=== PATIENT | male | born 1970 | race Caucasian/White ===

== ENCOUNTER 2018-12-12 21:57 | Emergency (ER) | payer SELFPAY ==
[2018-12-12] MEDS ORDERED: HYDROCODONE/APAP 10/325 TAB ONE (22:56)
--- NOTE | 2018-12-13 00:13 | ER ---
Nurse's Notes [facility] Name: Bakari Cason Jr Age: 48 yrs Sex: Male : 1970 Arrival Date: 12/12/2018 Time: 22:04 Bed 4 Private MD: Diagnosis: Low back pain;Pain in left lower leg Presentation: 12/12 22:08 Presenting complaint: EMS states: Patient was in shower when shower chair collapsed lp1 from underneath him, hitting lower back on shower chair and hitting end of L BKA on wall of tub; Complaint of pain to R lower back. Transition of care: patient was not received from another setting of care. Onset of symptoms was December 12, 2018 at 21:00. Risk Assessment: Do you want to hurt yourself or someone else? Patient reports no desire to harm self or others. Initial Sepsis Screen: Does the patient meet any 2 criteria? No. Patient's initial sepsis screen is negative. Does the patient have a suspected source of infection? No. Patient's initial sepsis screen is negative. Care prior to arrival: None. 22:08 Method Of Arrival: EMS: [facility] lp1 22:08 Acuity: THEO 3 lp1 Historical: - Allergies: 22:17 Keflex; lp1 22:17 Clindamycin; lp1 - Home Meds: 22:17 pravastatin oral oral [Active]; Trazodone Oral [Active]; lp1 - PMHx: 22:17 Hyperlipidemia; lp1 - PSHx: 22:17 L BKA; R hip surgery; R arm surgery; Appendectomy; Cholecystectomy; ear surgery; lp1 - Immunization history:: Adult Immunizations up to date. - Social history:: Smoking status: Patient/guardian denies using tobacco. - Ebola Screening: : No symptoms or risks identified at this time. Screenin:18 Abuse screen: Denies threats or abuse. Denies injuries from another. Nutritional lp1 screening: No deficits noted. Tuberculosis screening: No symptoms or risk factors identified. Fall Risk Total Kramer Fall Scale indicates High Risk Score (45 or more points). Fall prevention measures have been instituted. Side Rails Up X 2 As available patient and family educated on Fall Prevention Program and Strategies. Assessment: 22:18 General: Appears in no apparent distress. Behavior is appropriate for age. Pain: lp1 Complains of pain in right low back Pain currently is 9 out of 10 on a pain scale. Quality of pain is described as sharp. Neuro: Level of Consciousness is awake, alert, obeys commands, Oriented to person, place, time, situation. Cardiovascular: Patient's skin is warm and dry. Respiratory: Respiratory effort is even, unlabored, Respiratory pattern is regular, Breath sounds are clear bilaterally. GI: No signs and/or symptoms were reported involving the gastrointestinal system. : No signs and/or symptoms were reported regarding the genitourinary system. EENT: No signs and/or symptoms were reported regarding the EENT system. Derm: Skin is pink, warm \\T\\ dry. Musculoskeletal: Amputation of Other: L BKA; Bruising noted to end of amputation from fall. 12/13 00:24 Reassessment: Patient appears in no apparent distress at this time. Patient is alert, lp1 oriented x 3, equal unlabored respirations, skin warm/dry/pink. Patient states feeling better. Vital Signs: 12/12 22:12 BP 156 / 90; Pulse 55; Resp 18; Temp 97.8(O); Pulse Ox 97% on R/A; Weight 108.86 kg; lp1 Height 6 ft. 1 in. (185.42 cm); Pain 9/10; 23:00 BP 129 / 82; Pulse 58; Resp 18; Pulse Ox 97% on R/A; lp1 12/13 00:00 BP 108 / 58; Pulse 59; Pulse Ox 97% on R/A; lp1 12/12 22:12 Body Mass Index 31.66 (108.86 kg, 185.42 cm) lp1 ED Course: 12/12 22:04 Patient arrived in ED. am2 22:07 Sudha Cintron, RN is Primary Nurse. lp1 22:11 Triage completed. lp1 22:12 Arm band placed on right wrist. lp1 22:18 Patient has correct armband on for positive identification. Pulse ox on. NIBP on. lp1 22:19 No provider procedures requiring assistance completed. lp1 22:28 Noelle Med[facility] FNP-C [facility]. kb 22:28 Mark Collado MD is Attending Physician. kb 22:52 Tib Fib Left XRAY In Process Unspecified. EDMS 23:[address] via stretcher. nj 23:15 CT completed. Patient tolerated procedure well. Patient moved back from CT. 23:22 CT Lumbar Spine Wo Con In Process Unspecified. EDAZ 12/13 00:13 Patient did not have IV access during this emergency room visit. lp1 Administered Medications: 12/12 22:49 Drug: Constable 10 mg-325 mg 1 tabs Route: PO; lp1 12/13 00:00 Follow up: Response: Pain is decreased lp1 Outcome: 00:12 Discharge ordered by MD. kb 00:24 Discharged to home via wheelchair, with family. lp1 00:24 Condition: good 00:24 Discharge instructions given to patient, Instructed on discharge instructions, follow up and referral plans. medication usage, Demonstrated understanding of instructions, follow-up care, medications, Prescriptions given X 2. 00:25 Patient left the ED. lp1 Addendum: 12/14/2018 10:47 Addendum: Radiology Result: Per Noelle Medley NP contacted pt to follow-up with a a5 orthopedic doctor for positive old fx on x-ray. Pt states "I will definitely follow-up thanks". Signatures: Dispatcher [employer] EDAZ Noelle Medley, PUBLIC ADDRESS SYSTEMS MECHANIC-C PUBLIC ADDRESS SYSTEMS MECHANIC-Matteob Bry Ocasio Audri, RN RN aa5 Sudha Cintron RN RN lp1 Vladislav Alonzo Amanda am2
--- NOTE | 2018-12-13 00:13 | EDPHYS ---
Physician Documentation [facility] Name: Bakari Cason Jr Age: 48 yrs Sex: Male : 1970 Arrival Date: 12/12/2018 Time: 22:04 Bed 4 Private MD: ED Physician Mark Collado HPI: 12/13 00:11 This 48 yrs old Male presents to ER via EMS with complaints of Fall Injury. kb 00:11 Details of fall: The patient fell from seated position, in the shower. Onset: The kb symptoms/episode began/occurred just prior to arrival. Associated injuries: The patient sustained left pereira and lumbar area and right low back, painful injury. Severity of symptoms: At their worst the symptoms were moderate, in the emergency department the symptoms are unchanged. The patient has not experienced similar symptoms in the past. The patient has not recently seen a physician. 00:11 Pt reports he sat on shower chair and it collapsed. Pain to low back, right flank and kb left bka stump. Historical: - Allergies: 12/12 22:17 Keflex; lp1 22:17 Clindamycin; lp1 - Home Meds: 22:17 pravastatin oral oral [Active]; Trazodone Oral [Active]; lp1 - PMHx: 22:17 Hyperlipidemia; lp1 - PSHx: 22:17 L BKA; R hip surgery; R arm surgery; Appendectomy; Cholecystectomy; ear surgery; lp1 - Immunization history:: Adult Immunizations up to date. - Social history:: Smoking status: Patient/guardian denies using tobacco. - Ebola Screening: : No symptoms or risks identified at this time. ROS: 12/13 00:09 Constitutional: Negative for fever, chills, and weight loss, ENT: Negative for injury, kb pain, and discharge, Neck: Negative for injury, pain, and swelling, Cardiovascular: Negative for chest pain, palpitations, and edema, Respiratory: Negative for shortness of breath, cough, wheezing, and pleuritic chest pain, Abdomen/GI: Negative for abdominal pain, nausea, vomiting, diarrhea, and constipation, : Negative for injury, bleeding, discharge, and swelling, Skin: Negative for injury, rash, and discoloration, Neuro: Negative for headache, weakness, numbness, tingling, and seizure. Back: Positive for pain at rest, pain with movement, of the lumbar area and right low back. MS/extremity: Positive for pain, of the left pereira. Exam: 00:10 Constitutional: This is a well developed, well nourished patient who is awake, alert, kb and in no acute distress. Head/Face: Normocephalic, atraumatic. ENT: Nares patent. No nasal discharge, no septal abnormalities noted. Tympanic membranes are normal and external auditory canals are clear. Oropharynx with no redness, swelling, or masses, exudates, or evidence of obstruction, uvula midline. Mucous membranes moist. Neck: Trachea midline, no thyromegaly or masses palpated, and no cervical lymphadenopathy. Supple, full range of motion without nuchal rigidity, or vertebral point tenderness. No Meningismus. Chest/axilla: Normal chest wall appearance and motion. Nontender with no deformity. No lesions are appreciated. Cardiovascular: Regular rate and rhythm with a normal S1 and S2. No gallops, murmurs, or rubs. Normal PMI, no JVD. No pulse deficits. Respiratory: Lungs have equal breath sounds bilaterally, clear to auscultation and percussion. No rales, rhonchi or wheezes noted. No increased work of breathing, no retractions or nasal flaring. Abdomen/GI: Soft, non-tender, with normal bowel sounds. No distension or tympany. No guarding or rebound. No evidence of tenderness throughout. Skin: Warm, dry with normal turgor. Normal color with no rashes, no lesions, and no evidence of cellulitis. Neuro: Awake and alert, GCS 15, oriented to person, place, time, and situation. Cranial nerves II-XII grossly intact. Motor strength 5/5 in all extremities. Sensory grossly intact. Cerebellar exam normal. Normal gait. 00:10 Back: pain, that is moderate, of the lumbar area and right low back. 00:10 Musculoskeletal/extremity: Extremities: grossly normal except: noted in the left bka stump: pain, ROM: intact in all extremities, left bka. Vital Signs: 12/12 22:12 BP 156 / 90; Pulse 55; Resp 18; Temp 97.8(O); Pulse Ox 97% on R/A; Weight 108.86 kg; lp1 Height 6 ft. 1 in. (185.42 cm); Pain 9/10; 23:00 BP 129 / 82; Pulse 58; Resp 18; Pulse Ox 97% on R/A; lp1 12/13 00:00 BP 108 / 58; Pulse 59; Pulse Ox 97% on R/A; lp1 12/12 22:12 Body Mass Index 31.66 (108.86 kg, 185.42 cm) lp1 MDM: 12/12 22:28 Patient medically screened. kb 12/13 00:09 Data reviewed: vital signs, nurses notes. Data interpreted: Pulse oximetry: on room air kb is 97 %. Interpretation: normal. 00:10 Counseling: I had a detailed discussion with the patient and/or guardian regarding: the kb historical points, exam findings, and any diagnostic results supporting the discharge/admit diagnosis, lab results, radiology results, the need for outpatient follow up, a family practitioner, to return to the emergency department if symptoms worsen or persist or if there are any questions or concerns that arise at home. 12/13 00:02 Order name: Urine Dipstick--Ancillary (enter results) mw2 12/12 22:42 Order name: CT Lumbar Spine Wo Con kb 12/12 22:42 Order name: Tib Fib Left XRAY kb Administered Medications: 12/12 22:49 Drug: Adrian 10 mg-325 mg 1 tabs Route: PO; lp1 12/13 00:00 Follow up: Response: Pain is decreased lp1 Disposition: 12/13/18 00:12 Discharged to Home. Impression: Low back pain, Pain in left lower leg. - Condition is Stable. - Discharge Instructions: Musculoskeletal Pain, Back Pain, Adult, [id number]. - Prescriptions for Cyclobenzaprine 10 mg Oral Tablet - take 1 tablet by ORAL route every 8 hours As needed; 21 tablet. Diclofenac Sodium 75 mg Oral Tablet, Delayed Release (E.C.) - take 1 tablet by ORAL route 2 times per day As needed; 30 tablet. - Medication Reconciliation Form, Thank You Letter, Antibiotic Education, Prescription Opioid Use form. - Follow up: Emergency Department; When: As needed; Reason: Worsening of condition. Follow up: Private Physician; When: 2 - 3 days; Reason: Recheck today's complaints, Continuance of care, Re-evaluation by your physician. Addendum: 12/16/2018 19:27 Co-signature as Attending Physician, Mark Collado MD. g s Signatures: Dispatcher [employer] EDNoelle Lowry, HATCHERY HELPER-C HATCHERY HELPER-Ckb Sudha Cintron, RN RN lp1 Mark Collado MD MD Corrections: (The following items were deleted from the chart) 12/13 00:25 00:12 12/13/2018 00:12 Discharged to Home. Impression: Low back pain; Pain in left lp1 lower leg. Condition is Stable. Forms are Medication Reconciliation Form, Thank You Letter, Antibiotic Education, Prescription Opioid Use. Follow up: Emergency Department; When: As needed; Reason: Worsening of condition. Follow up: Private Physician; When: 2 - 3 days; Reason: Recheck today's complaints, Continuance of care, Re-evaluation by your physician. kb
[2018-12-13 00:28] LABS: Urine Blood NEGATIVE (NEG); Urine Glucose NEGATIVE (NEG); Urine Protein NEGATIVE (NEG); Urine Specific Gravity 1.025 (1.005-1.030); Urine pH 6.5 (5.0-7.0)
--- NOTE | 2018-12-13 06:46 | RAD REPORT ---
EXAM DESCRIPTION: RADTib Fib Left12/12/2018 11:09 pm CLINICAL HISTORY: Left leg pain status post injury FINDINGS: Below the knee amputation Oblique lucency is present within the proximal left tibial diametaphysis probably representing a suba cute fracture. Sclerosis surrounding the fracture site could indicate bone remodeling or osteomyeliti s. A vertical lucency is present within the tibial stump it probably representing subacute fracture or p rominent trabecula. Soft tissue ulceration present near the tibial stump. The bones are osteoporotic
--- NOTE | 2018-12-13 10:43 | RAD REPORT ---
EXAM DESCRIPTION: CT - Spine Lumbar Wo Con - 12/13/2018 1:07 am CLINICAL HISTORY: The patient is 48 years old and is Male; PAIN TECHNIQUE: Axial computed tomography images of the lumbar spine without intravenous contrast. Sagi ttal and coronal reformatted images were created and reviewed. This CT exam was performed using one or more of the following dose reduction techniques: automated exposure control, adjustment of the mA and/or kV according to patient size, and/or use of iterative reconstruction technique. COMPARISON: No relevant prior studies available. 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 The vertebral body heights ar e maintained. Discs/spinal canal/neural foramina: Intervertebral disc space narrowing with osteophyte formatio n is present throughout the lumbar spine. Broad-based disc bulge is noted most prominent at L2-L3 wit h associated posterior osteophyte formation and neural foraminal narrowing bilaterally, right greater than left. Mild disc bulges are noted at L3-L4 and L4-L5 with minimal bilateral neural foraminal jonathan rowing. Soft tissues: The soft tissues are normal. Vasculature: Atherosclerosis of the vasculature is noted. Bladder: The bladder is well distended. IMPRESSION: Spondylosis of the lumbar spine as described. Electronically signed by: Debra Mcmahon MD 12/12/2018 11:32 PM CDT Due to temporary technical issues with the PACS/Fluency reporting system, reports are being signed by the in house radiologist as a courtesy to ensure prompt reporting. The interpreting radiologist is f ully responsible for the content of the report.
== END 2018-12-13 00:25 | disposition home or self-care (01) ==
LOC: ER 21:57
DX: M79.662 Pain in left lower leg (principal); W07.XXXA Fall from chair, initial encounter; Y93.E1 Activity, personal bathing and showering; Y92.9 Unspecified place or not applicable; Z88.1 Allergy status to other antibiotic agents; Z88.3 Allergy status to other anti-infective agents; E78.5 Hyperlipidemia, unspecified
CPT/HCPCS: 72131; 81003; 99284